=== PATIENT | male | born 1975 | race Caucasian/White ===

== ENCOUNTER → 2019-09-01 | Outpatient (CLI) | payer BC ==
[~2019-09-01] MED LIST: PROAIR RESPICL90 MCG INH; RANI150 PO; VITAMIN D32000 UNIT PO
== END | disposition home or self-care (01) ==
LOC: LAB 14:19 → LAB SHORT 14:19 → LAB FUT 08-22 14:45 → EDSTATUS 08-22 14:45
DX: Z77.21 Contact with and (suspected) exposure to potentially hazardous body fluids (principal); Z71.1 Person with feared health complaint in whom no diagnosis is made
CPT/HCPCS: 87086

== ENCOUNTER 2022-10-01 12:26 | Day surgery (SDC) | payer OTHER ==
[~2022-10-01] VITALS: Ht 175.3 cm; Wt 91.0 kg
[2022-10-01] MEDS ORDERED: SERT25 (13:21)
[2022-10-01] MEDS ORDERED: TESTOSTERONE60 GM (13:21)
[2022-10-01] MEDS ORDERED: Prinivil10 MG (13:21)
[2022-10-01 15:09] VITALS: BP 97/68
== END 2022-10-01 15:10 | disposition home or self-care (01) ==
LOC: ORSCSDS 12:26
PROVIDERS: Internal Medicine Gastroenterology
PROC: 0DJD8ZZ Inspection of Lower Intestinal Tract, Via Natural or Artificial Opening Endoscopic (ICD-10-PCS; principal; 2022-10-01 13:45)
DX: Z12.11 Encounter for screening for malignant neoplasm of colon (principal); Z83.71 Family history of colonic polyps; D12.2 Benign neoplasm of ascending colon; K64.8 Other hemorrhoids; K21.9 Gastro-esophageal reflux disease without esophagitis; I10 Essential (primary) hypertension; E78.5 Hyperlipidemia, unspecified; Z85.47 Personal history of malignant neoplasm of testis; Z87.891 Personal history of nicotine dependence; Z79.899 Other long term (current) drug therapy
CPT/HCPCS: 88305; J2704; J7120

== ENCOUNTER → 2023-07-08 | Outpatient (CLI) | payer OTHER ==
[~2023-07-08] MED LIST changes: +Prinivil10 MG; +SERT25; +TESTOSTERONE60 GM
== END ==
LOC: EDSTATUS 07:40 → LAB SHORT 17:09 → LAB 17:09
DX: J02.9 Acute pharyngitis, unspecified (principal)
CPT/HCPCS: 87081